=== PATIENT | female | born 1940 | race Asian ===

== ENCOUNTER 2024-04-13 06:26 | Emergency (ER) | payer MEDICARE, OTHER ==
[~2024-04-13 06:26] MED LIST: AMOX125S11 PO; BENZ-227 PO; FLUT16SP NASAL
[2024-04-13] MEDS ORDERED: ROSU10TA72 PO (06:47)
[2024-04-13] MEDS ORDERED: AMLO-142 PO (06:47)
[2024-04-13] MEDS ORDERED: METO-408 PO (06:47)
[2024-04-13] MEDS: ACETAMINOPHEN 500 MG TABLET PO ONE (07:02)
[2024-04-13] MEDS: LIDOCAINE 5% TRANSDERMAL PATCH TD ONE (07:03)
[2024-04-13 07:33] VITALS: TEMP 98.1
[2024-04-13 07:38] LABS: EOSINOPHILS % (AUTO) 1.5 % (1.0-6.0); HEMATOCRIT 42.1 % (36-46); HEMOGLOBIN 14.5 g/dL (12.0-16.0); LYMPHOCYTES # (AUTO) 1.6 K/uL (1.0-4.8); LYMPHOCYTES % (AUTO) 31.3 % (22.0-44.0); MEAN CORPUSCULAR HEMOGLOBIN 33.4 pg (26.0-34.0); MEAN CORPUSCULAR HGB CONC 34.4 G/dL (31.0-37.0); MEAN CORPUSCULAR VOLUME 97 fL (80-100); MONOCYTES # (AUTO) 0.5 K/uL (0.1-1.0); MONOCYTES % (AUTO) 10.7 % (2.0-9.0); NEUTROPHILS # (AUTO) 2.8 K/uL (1.8-7.7); NEUTROPHILS % (AUTO) 55.5 % (40.0-70.0); PLATELET COUNT (AUTO) 242 K/uL (150-450); RED BLOOD CELL COUNT(AUTO) 4.33 MIL/uL (4.00-5.20); RED CELL DISTRIBUTION WIDTH 13.2 % (11.5-14.5)
[2024-04-13 08:01] LABS: ANION GAP 10 mmol/L (8-16); CALCIUM, TOTAL 8.8 mg/dL (8.8-10.5); CARBON DIOXIDE 22 mmol/L (22-29); CHLORIDE 103 mmol/L (98-107); CREATININE 0.68 mg/dL (0.60-1.30); GLOMERULAR FILTR. RATE CALC > 60 mL/min (>60); GLUCOSE,RANDOM 105 mg/dL (70-110); POTASSIUM 4.1 mmol/L (3.5-5.1); SODIUM SERUM 135 mmol/L (136-145); UREA NITROGEN, BLOOD 15 mg/dL (7-18)
[2024-04-13 08:08] LABS: ALANINE AMINOTRANSFERASE 44 U/L (12-78); ALBUMIN 4.1 g/dL (3.4-5.0); ALKALINE PHOSPHATASE 74 U/L (46-116); ASPARTATE AMINOTRANSFERASE 27 U/L (15-37); BILIRUBIN,TOTAL 0.7 mg/dL (0.1-1.0); TOTAL PROTEIN, SERUM 7.7 g/dL (6.4-8.2); TROPONIN I-HIGH SENSITIVITY 6 ng/L (<51)
[2024-04-13 08:15] VITALS: BP 110/74; PULSE 90; RESP 16; O2SAT 96
[2024-04-13] MEDS ORDERED: LIDO700A15 TP (08:19)
[2024-04-13] MEDS ORDERED: ACET-3385 PO (08:19)
[2024-04-13] MEDS ORDERED: IBUP-1492 PO (08:27)
== END 2024-04-13 08:37 | disposition home or self-care (01) ==
LOC: EMS 06:26
DX: M54.12 Radiculopathy, cervical region (principal); M54.6 Pain in thoracic spine; G47.9 Sleep disorder, unspecified; I10 Essential (primary) hypertension; Z87.440 Personal history of urinary (tract) infections; Z79.899 Other long term (current) drug therapy
CPT/HCPCS: 71045; 80053; 84484; 85025; 93005; 99285; 36415-L1; 36415-TC

== ENCOUNTER 2024-05-20 15:07 | Emergency (ER) | payer MEDICARE, OTHER ==
[~2024-05-20] VITALS: Ht 157.5 cm; Wt 70.5 kg
[~2024-05-20 15:07] MED LIST changes: +ACET-3385 PO; +AMLO-142 PO; -AMOX125S11 PO; -BENZ-227 PO; -FLUT16SP NASAL; +IBUP-1492 PO; +LIDO700A15 TP; +METO-408 PO; +ROSU10TA72 PO
[2024-05-20 15:09] VITALS: TEMP 98.7
[2024-05-20 15:36] LABS: APPEARANCE,URINE HAZY (CLEAR); BILIRUBIN,URINE NEGATIVE (NEGATIVE); COLOR,URINE LIGHT YELLOW (YELLOW); GLUCOSE, URINE (UA) NEGATIVE (NEGATIVE); KETONES,URINE NEGATIVE (NEGATIVE); LEUKOCYTE ESTERASE ,URINE LARGE (NEGATIVE); NITRATE,URINE NEGATIVE (NEGATIVE); OCCULT BLOOD,URINE SMALL (NEGATIVE); PROTEIN,URINE NEGATIVE (NEGATIVE); SPECIFIC GRAVITIY, URINE 1.004 (1.003-1.030); UROBILINOGEN,URINE <=1.0 mg/dL (<=1.0)
[2024-05-20 15:47] LABS: BACTERIA,URINE Moderate /HPF (None Seen); RBC,URINE 0-2 /HPF (0-2); SQUAMOUS EPITHELIAL CELL,UR Few /LPF (None Seen); WBC,URINE 51-100 /HPF (0-5)
[2024-05-20] MEDS ORDERED: ACET-66 PO (18:09)
[2024-05-20] MEDS ORDERED: CEPH-558 PO (18:09)
[2024-05-20] MEDS ORDERED: PHEN-846 PO (18:09)
[2024-05-20 18:38] VITALS: BP 145/82; PULSE 65; RESP 18; O2SAT 98
== END 2024-05-20 18:57 | disposition home or self-care (01) ==
LOC: EMS 15:07
DX: N39.0 Urinary tract infection, site not specified (principal); I10 Essential (primary) hypertension; Z87.440 Personal history of urinary (tract) infections
CPT/HCPCS: 81001; 87086; 99283

== ENCOUNTER 2025-01-23 14:47 | Emergency (ER) | payer MEDICARE, OTHER ==
[~2025-01-23] VITALS: Ht 160 cm; Wt 68.0 kg
[~2025-01-23 14:47] MED LIST changes: +ACET-66 PO; +CEPH-558 PO; +LIDO-57 TP; -LIDO700A15 TP; +PHEN-846 PO
[2025-01-23 15:25] VITALS: TEMP 97.9
[2025-01-23 15:45] LABS: COVID AG,FIA SOURCE NASAL SWAB
[2025-01-23 16:36] LABS: INFLUENZA TYPE A NEGATIVE FOR TYPE A (NEGATIVE); INFLUENZA TYPE B NEGATIVE FOR TYPE B (NEGATIVE)
[2025-01-23 17:21] LABS: SARS-COV2 (COVID) ANTIGEN,FIA Positive (Negative)
[2025-01-23 18:25] VITALS: BP 146/92; PULSE 62; RESP 18; O2SAT 97
== END 2025-01-23 19:13 | disposition home or self-care (01) ==
LOC: EMS 14:47
DX: U07.1 COVID-19 (principal); R05.9 Cough, unspecified; J02.9 Acute pharyngitis, unspecified; I10 Essential (primary) hypertension; M19.90 Unspecified osteoarthritis, unspecified site; Z87.440 Personal history of urinary (tract) infections; Z79.899 Other long term (current) drug therapy
CPT/HCPCS: 87430; 87804; 99283